=== PATIENT | female | born 1945 | race Caucasian/White ===

== ENCOUNTER 2021-06-21 07:45 | Observation (INO) ==
--- NOTE | 2021-06-09 09:44 | PAT Medication Instructions ---
Medication Instructions Date of Service June 09, 2021 Home Medications Medication Instructions Recorded Reji Valdez #1 ea 06/06/21 alprazolam 0.5 mg tablet 0.5 mg PO TID PRN amlodipine 2.5 mg tablet 2.5 mg PO QAM ascorbic acid (vitamin C) 1,000 mg tablet 1,000 mg PO QAM aspirin 81 mg tablet,delayed release (Aspirin Low Dose) 81 mg PO QAM atenolol 50 mg tablet 50 mg PO BID calcium carbonate 600 mg calcium (1,500 mg) tablet 600 mg PO QAM cholecalciferol (vitamin D3) 25 mcg (1,000 unit) capsule 25 mcg PO QAM coenzyme Q10 75 mg capsule (Ultra CoQ10) 200 mg PO QAM hydrochlorothiazide 25 mg tablet 25 mg PO QAM isosorbide mononitrate 30 mg tablet,extended release 24 hr 30 mg PO QAM latanoprost 0.005 % eye drops 1 drp OPHTHALMIC (EYE) QPM levothyroxine 88 mcg capsule 88 mcg PO QAM magnesium 250 mg tablet 250 mg PO QAM potassium chloride 20 mEq/15 mL oral liquid 20 meq PO QAM pramipexole 0.5 mg tablet 0.5 mg PO HS pravastatin 80 mg tablet 80 mg PO QAM acetaminophen 650 mg tablet,extended release 1,300 mg PO TID PRN omeprazole magnesium 20 mg tablet,delayed release (Prilosec OTC) 20 mg PO QAM STOP taking 2 weeks before surgery (or as soon as possible if surgery is within 2 weeks) coenzyme Q10 75 mg capsule (Ultra CoQ10) 200 mg PO QAM DO NOT take the morning of surgery ascorbic acid (vitamin C) 1,000 mg tablet 1,000 mg PO QAM calcium carbonate 600 mg calcium (1,500 mg) tablet 600 mg PO QAM cholecalciferol (vitamin D3) 25 mcg (1,000 unit) capsule 25 mcg PO QAM hydrochlorothiazide 25 mg tablet 25 mg PO QAM magnesium 250 mg tablet 250 mg PO QAM potassium chloride 20 mEq/15 mL oral liquid 20 meq PO QAM Take morning of surgery With a small sip of water, OTHERWISE NOTHING TO EAT OR DRINK AFTER MIDNIGHT: alprazolam 0.5 mg tablet 0.5 mg PO TID PRN (if needed) amlodipine 2.5 mg tablet 2.5 mg PO QAM aspirin 81 mg tablet,delayed release (Aspirin Low Dose) 81 mg PO QAM (continue as normal unless told otherwise by surgeon) atenolol 50 mg tablet 50 mg PO BID isosorbide mononitrate 30 mg tablet,extended release 24 hr 30 mg PO QAM levothyroxine 88 mcg capsule 88 mcg PO QAM pravastatin 80 mg tablet 80 mg PO QAM acetaminophen 650 mg tablet,extended release 1,300 mg PO TID PRN (okay to take up to 4 hours prior to surgery if needed) omeprazole magnesium 20 mg tablet,delayed release (Prilosec OTC) 20 mg PO QAM Take evening before surgery alprazolam 0.5 mg tablet 0.5 mg PO TID PRN (if needed) atenolol 50 mg tablet 50 mg PO BID latanoprost 0.005 % eye drops 1 drp OPHTHALMIC (EYE) QPM pramipexole 0.5 mg tablet 0.5 mg PO HS acetaminophen 650 mg tablet,extended release 1,300 mg PO TID PRN (if needed) Other Notes If you have any questions please call us at [phone] or [phone] or [phone] or [phone]
--- NOTE | 2021-06-14 13:11 | Anesthesiology Consultation ---
Date of Service June 14, 2021 Assessment & Plan (1) Encounter for pre-operative examination: - COVID screening: Per assessment on 06/14: Travel screen negative, no known COVID-19 positive contacts or current COVID-19 related symptoms. Patient vaccinated. Surgeon arranging preop COVID testing. Awaiting results. 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 She has been asymptomatic on Imdur.. Echocardiogram from 03/2021 was normal. No valve abnormalities appreciated. Carotid duplex from 12/24/2019 shows no significant stenosis on either side. IVC is normal." F/U 6 months recommended. Chart Review Chart Review: Acceptable Risk for Surgery and Patient seen in Pre Admission Testing Teaching & Discussion Pre-Anesthesia Teaching/Discussion Notes: Instructed NPO after midnight before surgery,except medications with 15 cc of water. Medication instructions provided according to the PAT guidelines. History Surgery Operation Date: 06/21/21 11:30 Proposed Procedures p Left Total Knee Arthroplasty - Armani Spann MD Height/Weight Height: 5 ft 2 in Weight: 71.9 kg Allergies Allergy/AdvReac Type Severity Reaction Status Date / Time Sulfa (Sulfonamide Allergy Unknown Hives Verified 06/09/21 08:29 Antibiotics) Medications Home Medications Medication Instructions Recorded Confirmed Last Taken Wheeled Walker #1 ea 06/06/21 06/06/21 Unknown alprazolam 0.5 mg tablet 0.5 mg PO TID PRN 06/06/21 06/09/21 Unknown amlodipine 2.5 mg tablet 2.5 mg PO QAM 06/06/21 06/09/21 Unknown ascorbic acid (vitamin C) 1,000 mg 1,000 mg PO QAM 06/06/21 06/09/21 Unknown tablet aspirin 81 mg tablet,delayed 81 mg PO QAM 06/06/21 06/09/21 Unknown release (Aspirin Low Dose) atenolol 50 mg tablet 50 mg PO BID 06/06/21 06/09/21 Unknown calcium carbonate 600 mg calcium 600 mg PO QAM 06/06/21 06/09/21 Unknown (1,500 mg) tablet cholecalciferol (vitamin D3) 25 25 mcg PO QAM 06/06/21 06/09/21 Unknown mcg (1,000 unit) capsule coenzyme Q10 75 mg capsule (Ultra 200 mg PO QA 06/06/21 06/09/21 Unknown CoQ10) hydrochlorothiazide 25 mg tablet 25 mg PO [facility] 06/06/21 06/09/21 Unknown isosorbide mononitrate 30 mg 30 mg PO [facility] 06/06/21 06/09/21 Unknown tablet,extended release 24 hr latanoprost 0.005 % eye drops 1 drp OPHTHALMIC (EYE) QPM 06/06/21 06/09/21 Unknown levothyroxine 88 mcg capsule 88 mcg PO [facility] 06/06/21 06/09/21 Unknown magnesium 250 mg tablet 250 mg PO [facility] 06/06/21 06/09/21 Unknown potassium chloride 20 mEq/15 mL 20 meq PO [facility] 06/06/21 06/09/21 Unknown oral liquid pramipexole 0.5 mg tablet 0.5 mg PO HS 06/06/21 06/09/21 Unknown pravastatin 80 mg tablet 80 mg PO [facility] 06/06/21 06/09/21 Unknown acetaminophen 650 mg 1,300 mg PO TID PRN 06/09/21 06/09/21 Unknown tablet,extended release omeprazole magnesium 20 mg 20 mg PO [facility] 06/09/21 06/09/21 Unknown tablet,delayed release (Prilosec OTC) diclofenac sodium 1 tab PO DAILY 06/14/21 06/14/21 Unknown Past Medical History Medical History Anxiety GERD (gastroesophageal reflux disease) controlled Hyperlipidemia Hypertension Hypothyroidism Left knee DJD Osteoarthritis Restless leg Exercise / Class Metabolic Activity II 4-5 Yardwork/Stairs/Walk up hill Past Family History Family History Mother Family history of reaction to anesthesia PONV Family history of diabetes mellitus Past Surgical History Surgical History (Updated 06/14/21 @ 13:39 by Laina Putnam) History of back surgery Lumbar (no hardware) History of carpal tunnel release History of cataract surgery R/L History of dilatation and curettage History of eye surgery Right eye (for glaucoma) > post-op hemorrhaging with transient vision loss complication a few weeks after surgery History of eye surgery Left (for torn retina) History of foot surgery R/L multiple (toe fusion, bunionectomy) History of hysterectomy Total History of uterine suspension procedure Past Anesthesia History No Hx of Anesthesia Complications (except PONV) and No Family Hx of Anesthesia Complications (except mother (PONV)) History of PONV History of PONV (severe, multiple PONV, dry heaves (pre-treatment used with previous eye surgery was successful)) and Hx of Motion Sickness Social History Smoking Status: Former smoker Do You Dip or Chew Tobacco: No Smoking End Date: Quit 30 years ago Hx Alcohol Use: Yes Alcohol type: wine and hard liquor alcohol intake frequency: a few times a week Hx Substance Use: No Review of Systems Patient denies chest pain, shortness of breath, dyspnea on exertion, fever, chills, cough, wheezing, palpitations. Physical Exam Vital Signs VITALS BP 135/70 P 62 TEMP 98.2 SP02 96%RA RESP 16 PHYSICAL Full cervical extension range of motion. Full TMJ range of motion. TMD 2.5 finger breaths Mallampati Score 3 Dentition: intact Lungs: clear throughout to auscultation Cardiac: regular rate and rhythm, no murmurs noted Spine: normal Carotid arteries: negative bruit Extremities: no edema Lab Results Anesthesia Preop Results Results Anesthesia Widget: WBC 5.58 K/uL (4.8-10.8) 06/14/21 Hgb 11.5 g/dL (12.0-16.0) L 06/14/21 Hct 36.2 % (37-47) L 06/14/21 Plt 312 K/uL (130-400) 06/14/21 PT 10.0 Seconds (9.0-12.0) 06/14/21 PTT 23.2 Seconds (21.0-31.0) 06/14/21 INR 1.0 (0.9-1.1) 06/14/21 Blood Type A Positive 06/14/21 Antibody Screen NEGATIVE 06/14/21 Testing Laboratory Results 05/09/21 SODIUM 139 POTASSIUM 4.3 CHLORIDE 105 CO2 29.0 BUN 23.0 CREATININE 1.2 GLUCOSE 102 Electrocardiogram Date: 03/24/21 SR at 63bpm. Chest X-Ray Date: 06/14/21 FINDINGS: Cardiomediastinal and hilar silhouettes are within normal limits. Mild right hemidiaphragmatic elevation. Calcified plaque of the thoracic aorta. No pneumothorax, pleural effusion, airspace consolidation or overt pulmonary edema. The bones of the chest appear grossly intact. IMPRESSION: No acute process. Echocardiogram Date: 04/11/21 EF 57%. No RWMA. No significant valvular disease.
[~2021-06-21 07:45] MED LIST: ACETAMINOPHEN 500 MG TAB PO SCH; BUPIVACAINE 0.5 % 5 MG/1 ML PF 10ML VIAL ONE; BUPIVACAINE LIPOSOME/PF 266 MG, BUPIVACAINE/EPINEPHRINE 50 ML, SODIUM CHLORIDE 0.9% 30 ... INFIL SCH; CeleBREX 200 MG CAP PO SCH; FAMOTIDINE 20 MG TAB PO SCH; GABAPENTIN 300 MG CAP PO SCH; LR 500ML BOLUS, THEN 15ML/HR IV SCH; TRANEXAMIC ACID 1,000 MG **IV Intra-op IV SCH; ceFAZolin 2000MG 2,000 MG/15 ML SYR IV SCH
[2021-06-21] MEDS: LR 60ML/HR IV SCH ×2 (08:16→08:36)
--- NOTE | 2021-06-21 08:32 | History & Physical Bridge Note ---
Date of Service June 21, 2021 History & Physical Bridge Note I have examined the patient, reviewed the History & Physical and in the interval since the performance of the History & Physical I have noted the following changes of clinical significance: no changes noted
[2021-06-21] MEDS ORDERED: EPINEPHrine INJ 1 MG/ML AMP ONE (08:33)
[2021-06-21] MEDS ORDERED: BUPIVACAINE 0.5 % 5 MG/1 ML MPF 30ML VIAL ONE (08:33)
[2021-06-21] MEDS ORDERED: BUPIVACAINE 0.25% 30 ML VIAL ONE (08:35)
[2021-06-21] MEDS ORDERED: MIDAZOLAM HCL 1 MG/ML 2ML VIAL ONE ×2 (08:36→08:37)
[2021-06-21] MEDS ORDERED: SODIUM CHLORIDE 0.9% PF 50 ML VIAL ONE (08:36)
[2021-06-21] MEDS ORDERED: BUPIVACAINE LIPOSOME 1.3% 266 MG/20 ML VIAL ONE (08:36)
[2021-06-21] MEDS ORDERED: fentaNYL citrate 100 MCG/2 ML VIAL ONE (08:37)
[2021-06-21] MEDS ORDERED: ATROPINE SULFATE 0.1 MG/ML 10ML SYR IV PRN (09:11)
[2021-06-21] MEDS ORDERED: ePHEDrine sulfate 50 MG/ML AMP IV PRN (09:11)
[2021-06-21] MEDS ORDERED: fentaNYL citrate 100 MCG/2 ML VIAL IV PRN (09:11)
[2021-06-21] MEDS ORDERED: ONDANSETRON INJ 2 MG/ML 2 ML VIAL IV PRN ×2 (09:11→15:47)
[2021-06-21] MEDS ORDERED: PROPOFOL IV EMULSION 10 MG/ML 20 ML VIAL IV ONE ×2 (10:30→11:12)
[2021-06-21] MEDS ORDERED: LIDOCAINE 2% 2 ML VIAL/AMP(20MG/ML) INFIL ONE (10:30)
--- NOTE | 2021-06-21 11:54 | Post Operative Brief Note ---
PG Immediate Post Op with CF Date of Surgery June 21, 2021 Pre & Post Diagnosis Operation Date: 06/21/21 10:40 Pre-Op Diagnosis: Left Knee Degenerative Joint Disease Post-Op Diagnosis: Left Knee Degenerative Joint Disease I identified the patient and participated in the time-out.: Yes Procedure Operation Date: 06/21/21 10:40 Actual Procedures p Left Total Knee Replacement(Left) - Armani Spann MD Surgeon Armani Spann MD Director Life RODERICK Faria Estimated Blood Loss 50 Findings Consistent with Post-Op Diagnosis Fluids 1400 cc Specimens Specimen Description: Permanent Solution: A.) Left Knee Bone and Tissue Drains Mann Catheter (16 upper sorbian 10ml balloon; inserted by Fly HOBSON without difficulty; urine output monitored throughout entire case by anesthesia staff) Anesthesia Type Spinal MAC Complications none Disposition Accompanied Patient To Recovery: No
--- NOTE | 2021-06-21 12:11 | Operative Report ---
Post Operative Report Pre & Post Diagnosis Operation Date: 06/21/21 10:40 Pre-Op Diagnosis: Left Knee Degenerative Joint Disease Post-Op Diagnosis: Left Knee Degenerative Joint Disease I identified the patient and participated in the time-out.: Yes Procedure Operation Date: 06/21/21 10:40 Actual Procedures p Left Total Knee Replacement(Left) - Armani Spann MD Surgeon Armani Spann MD Town Planner RODERICK Faria Estimated Blood Loss 50 Findings Consistent with Post-Op Diagnosis Operative findings with advanced left knee DJD. Extensive grade 4 [id number] disease and eburnation of the medial compartment with less severe changes elsewhere. Moderate-sized joint effusion. Varus deformity to her knee. Osteophytes mostly in the medial compartment. Fluids 1400 cc Specimens Left knee sent for pathology. Drains None Anesthesia Type Spinal MAC Complications none Disposition Accompanied Patient To Recovery: No Indications Patient is 76-year-old female said a long history of left knee pain discomfort describes gotten worse over time patient been through extensive conservative treatment provided elsewhere. She continued be limited by her pain and discomfort. X-rays show advanced left knee DJD. She elected proceed with surgical treatment. Description of Procedure Operative implants consist of: 1. Biomet Vanguard size 60 left posterior stabilized femoral component. 2. Biomet size 63 tibial tray. 3. 12 mm posterior stabilized polyethylene insert. 4. 25 x 8 all polypatella. The patient was taken to the operating, identified, and placed on the operating table supine position but all contractors were properly padded. IV antibiotics tried by anesthesia team. Spinal anesthetic and abductor canal block had been provided in the holding area. Mann catheter was placed in sterile fashion with a left thigh turn was then placed in the left lower extremities and prepped draped in usual sterile fashion. The left leg was elevated exsanguinated with use of an Esmarch and tourniquet placed at 300 mmHg. An anterior approach to the left knee was then performed through longitudinal incision centered over the patella. Sharp dissection was carried through subcutaneous tissue down to the extensor mechanism. A medial parapatellar arthrotomy incision was made. Some subperiosteal dissection was carried out medially but the fat pad was resected from each patella tendon. Lateral patellofemoral ligament was released. Patella was subluxated laterally and the knee was flexed. The osteophytes were taken off distal femur. The ACL and PCL were then released and distal femur and the tibia subluxated anteriorly. The external tibial alignment jig was then placed in the interface the tibia and adjusted 12 mm medially. Proximal tibial cut was made remove about 2 mm of bone from the most deficient aspect medial tibial plateau. Some osteophytes taken off medial and posterior medially. The tibia size a size 63. Attention drawn the femur. The distal femur examined the sharp drill bit intramedullary canal was suction. A left 5 degree valgus cutting guide was placed. Distal femoral cutting block was pinned in place. Distal femoral cut was made to take an additional 3 mm of bone off distal femur. The femur was then sized to a size 60. The AP cutting block was pinned parallel to the epicondylar axis which was 5 degrees of external rotation. Anterior cut, anterior chamfer, posterior cut, posterior chamfer cuts were made. The box cutting guide was placed in a just slight lateral box cut was made. The knee was flexed. The remnants of the medial lateral menisci were excised. The osteophyte taken off the posterior aspect the femur. A trial femoral component was placed but the tibial tray was pinned in maximum external rotation and the drill and stem punch were used to create defect in proximal tibia for the tibial tray. The knee was then trialed and 12 mm insert fit most appropriately. Attention drawn the patella. Nupathe the patella was cleaned of all soft tissues. Patella thickness measured 18 mm in thickness was cut down to 12. Was sized to a size 25 patella. The lug holes were drilled for the 25 patella. The lateral osteophyte is moved. Patella button was placed. Knee was taken through range of motion patella tracked nicely with no thumbs test. Attention drawn to place the permanent components. All trial components were removed. Bone plug was placed in the distal femur limit blood loss put a double batch [place]os G cement was mixed. A Biomet Vanguard size 60 left posterior stabilized femoral component, a size 63 tibial tray, a 12 mm posterior stabilized polyethylene insert, and a 25 x 8 all polypatella then cemented in place. Knee was brought out in full extension total cement hardened. Final cement check was then performed. Pericapsular tissues were injected with total 100 cc of combination of 20 cc of Exparel, 30 cc normal saline, 50 cc of quarter percent Marcaine with epinephrine. Patient did receive 1 g tranexamic acid per the turn was then let down for turn time 52 minutes. Hemostasis assured use electrocautery. Extensor mechanism closed with combination 1 PDS suture #1 Vicryl suture in [id number]-tuwon fashion. Extensor mechanism checked found to be intact the subcutaneous tissue then closed 2 Dexon suture in a buried knot fashion skin was closed skin shanell. Leg was then cleaned dried a sterile dressing both Xeroform, 4 x 4's, sterile cast padding, Richy bandage were applied. Patient then transferred to the recovery room in stable condition. Patient tolerated procedure well and there were no complications. Velasquez Faria, my physician title i assistant, was present for the entire procedure. His assistance was essential and required for appropriate patient positioning, prepping and draping, surgical exposure, performing the technical details of the operation, placement the implants, closure of the wound, and placement of the sterile bandage. I attest to the content of the Intraoperative Record and any orders documented therein. Any exceptions are noted below.
--- NOTE | 2021-06-21 12:14 | XRay Report ---
XR knee LT 1 or 2V routine HISTORY: 76 years-old Female Surgical Post Op left knee total joint arthroplasty COMPARISON: 06/06/2021 TECHNIQUE: 2 views of the left knee FINDINGS: Total joint arthroplasty and patella resurfacing. Anterior midline skin shanell are noted along with expected postoperative soft tissue swelling and deep tissue air. No acute fracture or unexpected fore ign body identified. IMPRESSION: Left knee total joint arthroplasty with expected postoperative changes. ACT 112: Negative or not required by law. The above report was generated using voice recognition software. It may contain grammatical, syntax o r spelling errors. Electronically signed by: Daryl Benedict M.D. 06/21/2021 12:13 PM
--- NOTE | 2021-06-21 13:36 | Anesthesiology Progress Note ---
Date of Service June 21, 2021 Anesthesia Post Procedure Vital Signs Vital Signs: Temp Pulse Pulse Resp BP BP Pulse Ox 06/21/21 13:30 67 16 119/63 96 06/21/21 13:15 67 20 129/64 96 06/21/21 13:00 67 20 126/63 96 06/21/21 12:50 67 20 122/60 98 06/21/21 12:40 97.5 F L 71 20 120/63 97 06/21/21 12:30 69 20 123/60 97 06/21/21 12:20 71 22 118/87 100 06/21/21 12:10 70 22 125/61 100 06/21/21 12:00 97.2 F L 68 22 120/61 99 06/21/21 08:48 97.7 F 58 L 18 136/70 98 06/21/21 08:24 98.1 F 62 18 143/71 H 99 Pain Intensity Left Knee: Pain Intensity: 5 Transfer of Care Handoff Completed per policy Notes Mental Status: alert / awake / arousable and participated in evaluation Patient Amnestic to Procedure: Yes Nausea / Vomiting: adequately controlled Pain: adequately controlled Airway Patency, RR, SpO2: stable & adequate BP & HR: stable & adequate Hydration State: stable & adequate Neuraxial Anesthesia: was administered and sensory block is resolving Anesthetic Complications: no major complications apparent and Pt Satisfied with anesthetic care Notes: In PACU, the patient stated having chest pressure with no radiation or SOB. The patient stated that it was improving. A 12 lead EKG was performed and it was unremarkable compared to a previous EKG. The patient also stated that the chest pressure resolved. The patient was otherwise stable to discharged to her room.
[2021-06-21] MEDS ORDERED: ALPRAZolam 0.5 MG TABLET PO PRN (15:47)
[2021-06-21] MEDS ORDERED: NALOXONE HCL 0.4 MG/1 ML VIAL/CARP IV PRN (15:47)
[2021-06-21] MEDS ORDERED: METOCLOPRAMIDE HCL INJ 5 MG/ML 2 ML VIAL IV PRN (15:47)
[2021-06-21] MEDS ORDERED: HYDROmorphone INJ 0.5 MG/0.5 ML SYR IV PRN (15:47)
[2021-06-21] MEDS ORDERED: bisacodyL 10 MG SUPP PR PRN (15:47)
[2021-06-21] MEDS ORDERED: ALUMINUM/MAGNESIUM SUSP 30 ML UDC PO PRN (15:47)
[2021-06-21] MEDS ORDERED: traMADol HCL 50 MG TABLET PO PRN (15:47)
[2021-06-21] MEDS ORDERED: MAGNESIUM HYDROXIDE SUSP 30 ML UDC PO PRN (15:47)
[2021-06-21] MEDS: ACETAMINOPHEN 500 MG TAB PO SCH ×2 (17:23→21:44)
[2021-06-21] MEDS: ASCORBIC ACID 500 MG TAB PO SCH (17:24)
[2021-06-21] MEDS: KETOROLAC TROMETHAMINE 15 MG/ML VIAL IV SCH ×2 (17:25→21:44)
[2021-06-21] MEDS ORDERED: TRANEXAMIC ACID / 0.7% NACL 1,000 MG/100 ML BAG IV SCH (18:00)
[2021-06-21] MEDS: SODIUM CHLORIDE 0.9% 1000ML 1,000 ML IV SCH (18:23)
[2021-06-21] MEDS: ceFAZolin 1000MG 1,000 MG/7.5 ML SYR IV SCH (18:25)
[2021-06-21] MEDS ORDERED: SENNA 8.6 MG TAB PO SCH (21:00)
[2021-06-21] MEDS ORDERED: LATANOPROST 0.005% OP SOLN 2.5 ML BTL OP SCH (21:00)
[2021-06-21] MEDS ORDERED: PRAMIPEXOLE DIHYDROCHLO 0.5 MG TAB PO SCH (21:00)
[2021-06-21] MEDS: ATENOLOL 50 MG TABLET PO SCH (21:41)
[2021-06-21] MEDS: ASPIRIN 81 MG ECTAB PO SCH (21:42)
[2021-06-21] MEDS: DOCUSATE SODIUM 100 MG CAP PO SCH (21:42)
[2021-06-22] MEDS: ceFAZolin 1000MG 1,000 MG/7.5 ML SYR IV SCH (01:42)
[2021-06-22] MEDS: SODIUM CHLORIDE 0.9% 1000ML 1,000 ML IV SCH (02:17)
[2021-06-22] MEDS: ACETAMINOPHEN 500 MG TAB PO SCH ×2 (06:06→15:33)
[2021-06-22] MEDS: KETOROLAC TROMETHAMINE 15 MG/ML VIAL IV SCH ×2 (06:06→11:37)
[2021-06-22] MEDS ORDERED: LEVOTHYROXINE SODIUM 88 MCG TABLET PO SCH (06:30)
[2021-06-22 07:27] LABS: Hematocrit (blood only) 32.3 % (37-47); Hemoglobin 10.3 g/dL (12.0-16.0); Mean Corpuscular Hemoglobin 30.3 pg (25-34); Mean Corpuscular Hgb Conc 31.9 g/dL (32-36); Platelet Count 259 K/uL (130-400); RDW Coefficient of Variation 14.8 % (11.5-14.5); RDW Standard Deviation 51.4 fL (36.4-46.3); White Blood Count 6.84 K/uL (4.8-10.8)
[2021-06-22 07:38] VITALS: O2SAT 96
[2021-06-22] MEDS ORDERED: dexAMETHasone 10 MG in SYRINGE 0 ML IV SCH (08:00)
[2021-06-22 08:01] LABS: Potassium 3.8 mmol/L (3.5-5.1)
[2021-06-22 08:02] LABS: Calcium 8.2 mg/dl (8.5-10.1); Creatinine Clr Calc Pharmacy 39.7 ml/min; Est GFR (African American) 61.7 ml/min; Est GFR (Non-African American) 53.3 ml/min
[2021-06-22] MEDS: ASCORBIC ACID 500 MG TAB PO SCH (08:54)
[2021-06-22] MEDS: ASPIRIN 81 MG ECTAB PO SCH (08:56)
[2021-06-22] MEDS: ATENOLOL 50 MG TABLET PO SCH (08:59)
[2021-06-22] MEDS ORDERED: PRAVASTATIN SOD 40 MG TAB PO SCH (09:00)
[2021-06-22] MEDS ORDERED: NON-FORMULARY MEDICATION (Coenzyme Q10 [Ultra Coq10] 75 mg capsule) PO SCH (09:00)
[2021-06-22] MEDS ORDERED: amLODIPine BESYLATE 5 MG TAB PO SCH (09:00)
[2021-06-22] MEDS ORDERED: ASCORBIC ACID 500 MG TAB PO SCH (09:00)
[2021-06-22] MEDS ORDERED: POTASSIUM CHLORIDE 20 MEQ/15 ML UDC PO SCH (09:00)
[2021-06-22] MEDS ORDERED: CHOLECALCIFEROL 1,000 UNITS 25 MCG TAB PO SCH (09:00)
[2021-06-22] MEDS ORDERED: NON-FORMULARY MEDICATION (Magnesium 250 mg tablet) PO SCH (09:00)
[2021-06-22] MEDS ORDERED: MULTIVITAMIN TAB PO SCH (09:00)
[2021-06-22] MEDS ORDERED: PANTOprazole 40 MG TAB PO SCH (09:00)
[2021-06-22] MEDS ORDERED: hydroCHLOROthiazide 25 MG TAB PO SCH (09:00)
[2021-06-22] MEDS ORDERED: ISOSORBIDE MONO EXTENDED REL 30 MG TABCR PO SCH (09:00)
[2021-06-22] MEDS ORDERED: CALCIUM CARBONATE 1250MG TAB PO SCH (09:00)
[2021-06-22] MEDS: DOCUSATE SODIUM 100 MG CAP PO SCH (09:03)
[2021-06-22 14:11] VITALS: TEMP 98.2
--- NOTE | 2021-06-22 15:27 | Progress Notes ---
DATE OF SERVICE: 06/22/2021. SUBJECTIVE: A 76-year-old female postoperative day 1 from left knee replacement. She is doing well. Pain is controlled. Therapy went well. No chest pain or shortness of breath. Not feeling dizzy o r lightheaded. OBJECTIVE: VITAL SIGNS: Temperature is 36.8. Vital signs are stable. GENERAL: Physical exam shows a pleasant, elderly female. She is sitting up on bed talking to her hu sband. She looks comfortable. EXTREMITIES: Examination of the left leg reveals the dressing to be clean, dry and intact. She can dorsiflex and plantar flex her foot appropriately. She is neurologically intact. LABORATORY DATA: Hemoglobin 10.3. Hematocrit 32.3. Electrolytes are stable. ASSESSMENT: A 76-year-old white female postoperative day 1 from left knee replacement, doing well. Pain is controlled. She is hoping to go home. PLAN: 1. DVT prophylaxis include thigh-high TEDs, SCDs, and aspirin twice a day. 2. PT, OT, weightbear as tolerated. Left total knee protocol. 3. Pain control, doing well with current pain regimen. 4. Disposition and plan to discharge to home today with some home health. Job ID: [id number]
[2021-06-22 15:43] VITALS: BP 135/74; PULSE 68
--- NOTE | 2021-06-24 06:06 | Electrocardiogram Report ---
Test Reason : Blood Pressure : / mmHG Vent. Rate : 069 BPM Atrial Rate : 069 BPM P-R Int : 250 ms QRS Dur : 088 ms QT Int : 448 ms P-R-T Axes : 071 047 014 degrees QTc Int : 480 ms Sinus rhythm with 1st degree A-V block Nonspecific T wave abnormality Prolonged QT Abnormal ECG No previous ECGs available Confirmed by Bakari Boyd ([id number]) on 06/24/2021 6:05:42 AM Referred By: Armani Spann Confirmed By:Bakari Boyd
--- NOTE | 2021-06-24 08:50 | Discharge Summary ---
Date of Service June 24, 2021 Discharge Data Procedures Performed Operation Date: 06/21/21 10:40 Actual Procedures p Left Total Knee Replacement(Left) - Armani Spann MD Hospital Course (1) Status post total left knee replacement: This is a 76 year old patient admitted on 06/21/21 and underwent total knee arthroplasty. She tolerated the procedure well and there were no complications. Transferred to the PACU post op and later to the orthopedic floor for further care. She was given ancef for antibiotic prophylaxis. She was also given ODELL stockings, SCDs, and aspirin for DVT prophylaxis. Hemoglobin, hematocrit, and vital signs were monitored during her hospital stay and remained stable. Did not require any blood transfusions. There were no complications during her hospital stay. By post op day #1 the patient was tolerating a regular diet, pain was reasonably controlled with oral pain medicine, and she was participating in physical therapy. On post op day #1 the patient was discharged home and set up with home health care. She was given printed discharge instructions including prescriptions for extra strength tylenol, aspirin, and tramadol. Continue physical therapy, weight bearing as tolerated. Continue ODELL stockings. Follow up approximately 2 weeks post op or sooner if there are problems or concerns. Coding Level of Care Code None Diagnoses Status post total left knee replacement Z96.652
== END 2021-06-22 16:15 | disposition home health service (06) ==
LOC: PACUINP 07:45 → ASU 07:45 → 3E 15:44